=== PATIENT | male | born 1950 ===

== ENCOUNTER 2024-07-28 08:27 | Outpatient (CLI) | payer MEDICARE ==
[2024-07-28 10:01] LABS: Hematocrit 42.2 % (38.8-50.0); Hemoglobin 14.6 g/dL (13.5-17.5); Mean Corpuscular HGB CONC 34.6 g/dL (32.0-36.0); Mean Corpuscular Hemoglobin 31.1 pg (27.0-33.0); Mean Platelet Volume 10.2 fL (7.4-10.4); Platelet Count 251 10x3/uL (150-450); Red Blood Cell (RBC) Count 4.69 10x6/uL (4.32-5.72); White Blood Cell (WBC) Count 7.9 10x3/uL (3.5-10.5)
[2024-07-28 13:23] LABS: Anion Gap 13 mmol/L (10-20); BUN (Urea Nitrogen) 13 mg/dL (8.4-25.7); Calc. Creatinine Clearance 0 mL/min (70-130); Calcium 9.7 mg/dL (7.8-10.44); Carbon Dioxide 27 mmol/L (23-31); Chloride 106 mmol/L (98-107); Estimated GFR 94; Glucose 116 mg/dL (83-110); Potassium 3.7 mmol/L (3.5-5.1); Sodium 142 mmol/L (136-145)
== END 2024-07-28 08:28 | disposition home or self-care (01) ==
LOC: CSHLAB 08:27
PROVIDERS: ATTEND Otolaryngology Otolaryngic Allergy
DX: Z01.812 Encounter for preprocedural laboratory examination (principal); G47.33 Obstructive sleep apnea (adult) (pediatric)
CPT/HCPCS: 80048; 85027

== ENCOUNTER 2024-08-02 05:36 | Day surgery (SDC) | payer MEDICARE ==
[2024-07-28 08:51] VITALS: BMI 26.9
[2024-08-02] MEDS ORDERED: Fentanyl 250 MCG/5 ML VIAL ONE (06:29)
[2024-08-02] MEDS ORDERED: Dexamethasone 20 MG/5 ML VIAL ONE (06:29)
[2024-08-02] MEDS ORDERED: Glycopyrrolate 0.2 MG/ML 5 ML SYRINGE ONE (06:29)
[2024-08-02] MEDS ORDERED: Rocuronium Bromide 10 MG/ML (10ML VIAL) ONE (06:29)
[2024-08-02] MEDS ORDERED: Lidocaine 1% PF 5 ML VIAL ONE (06:29)
[2024-08-02] MEDS ORDERED: PROPOFOL 60 ML ONE (06:29)
[2024-08-02] MEDS ORDERED: Ondansetron PF 4 MG/2 ML Vial ONE (06:29)
[2024-08-02] MEDS ORDERED: Dexmedetomidine 200 MCG/2 ML VIAL ONE (06:30)
[2024-08-02] MEDS ORDERED: Midazolam HCl 2 mg/2 ml Vial ONE (06:30)
[2024-08-02] MEDS ORDERED: CEFAZOLIN 2 GM VIAL ONE (06:44)
[2024-08-02] MEDS ORDERED: ePHEDrine Sulfate 50 MG/10 ML VIAL ONE (07:24)
[2024-08-02] MEDS ORDERED: Vancomycin 1 GM VIAL ONE (07:36)
[2024-08-02] MEDS ORDERED: Lidocaine 1% (PF) 30 ML VIAL ONE (07:55)
[2024-08-02] MEDS ORDERED: EPINEPHrine 1 MG/ML AMP ONE (07:55)
== END 2024-08-02 11:35 | disposition home or self-care (01) ==
LOC: CSHSDC 05:36
PROVIDERS: ATTEND Otolaryngology Otolaryngic Allergy
PROC: 05H Upper Veins, Insertion (ICD-10-PCS; principal; 2024-08-02)
PROC: 0JH60BZ Insertion of Single Array Stimulator Generator into Chest Subcutaneous Tissue and Fascia, Open Approach (ICD-10-PCS; 2024-08-02)
DX: G47.33 Obstructive sleep apnea (adult) (pediatric) (principal); I10 Essential (primary) hypertension; I48.91 Unspecified atrial fibrillation; Z79.01 Long term (current) use of anticoagulants; Z79.82 Long term (current) use of aspirin; Z79.899 Other long term (current) drug therapy
CPT/HCPCS: 42975; 64582; 70360; 71045; J1100; J2405; J2704; J3010; J3370; C1787; C1820; C1898; J0171; J2001; J2250